=== PATIENT | male | born 1950 | race Caucasian/White ===

== ENCOUNTER 2018-02-14 19:00 | Inpatient (IN) | payer OTHER ==
[~2018-02-14] VITALS: Ht 185.4 cm; Wt 93.5 kg
[2018-02-14 19:28] VITALS: Ht 185.4 cm; Wt 93.5 kg
[2018-02-14 20:45] LABS: BASOPHIL % 0.5 % (0-2); PLATELET COUNT 175 x10^3mcL (130-400); RED CELL DISTRIBUTION WIDTH 13.5 % (11.5-14.5)
[2018-02-14 21:03] LABS: CALCIUM 9.1 mg/dL (8.5-10.1); CARBON DIOXIDE 28.3 mmol/L (21-32); CHLORIDE SERUM 101 mmol/L (98-107); CREATININE SERUM 0.8 mg/dL (0.7-1.3); GFR1 > 60 mL/min; GLUCOSE SERUM 144 mg/dL (74-106); POTASSIUM SERUM 3.7 mmol/L (3.5-5.1); SODIUM SERUM 132 mmol/L (136-145)
[2018-02-14 21:07] LABS: ALBUMIN 3.4 g/dL (3.4-5.0); ALKALINE PHOSPHATASE 167 U/L (46-116); ALT/SGPT 39 U/L (16-63); AST/SGOT 28 U/L (15-37); BILIRUBIN TOTAL 0.85 mg/dL (0.20-1.00); LIPASE 204 IU/L (73-393); TOTAL PROTEIN, SERUM 7.2 g/dL (6.4-8.2)
[2018-02-14 22:13] LABS: AMYLASE 57 U/L (25-115)
[2018-02-14] MEDS ORDERED: CALCIUM500 M1 PO (22:56)
[2018-02-14] MEDS ORDERED: GLUCOSAMINE1000 MG PO (22:57)
[2018-02-14] MEDS ORDERED: ZYTIGA250 MG (22:58)
[2018-02-15 00:08] VITALS: BP 145/75
[2018-02-15 05:28] VITALS: BP 145/80
[2018-02-15 06:40] LABS: BASOPHIL % 0.3 % (0-2); PLATELET COUNT 157 x10^3mcL (130-400); RED CELL DISTRIBUTION WIDTH 12.2 % (11.5-14.5)
[2018-02-15 07:22] LABS: ALBUMIN 3.1 g/dL (3.4-5.0); ALKALINE PHOSPHATASE 151 U/L (46-116); ALT/SGPT 36 U/L (16-63); AST/SGOT 28 U/L (15-37); BILIRUBIN TOTAL 0.9 mg/dL (0.20-1.00); CALCIUM 8.9 mg/dL (8.5-10.1); CARBON DIOXIDE 28.3 mmol/L (21-32); CHLORIDE SERUM 107 mmol/L (98-107); CREATININE SERUM 0.5 mg/dL (0.7-1.3); GFR1 > 60 mL/min; GLUCOSE SERUM 113 mg/dL (74-106); MAGNESIUM 2.1 mg/dL (1.8-2.4); PHOSPHOROUS 3.4 mg/dL (2.5-4.9); POTASSIUM SERUM 3.3 mmol/L (3.5-5.1); SODIUM SERUM 143 mmol/L (136-145); TOTAL PROTEIN, SERUM 6.6 g/dL (6.4-8.2)
[2018-02-15 09:57] VITALS: BP 147/74
[2018-02-15] MEDS ORDERED: CLOPIDOGREL300 M1 PO (10:16)
[2018-02-15] MEDS ORDERED: ATORVASTATIN CA40 M1 PO (10:17)
[2018-02-15] MEDS ORDERED: METOPROLOL SUCC25 M2 PO (10:17)
[2018-02-15] MEDS ORDERED: ECO81 PO (10:17)
[2018-02-15 12:44] VITALS: BP 133/67
[2018-02-15 16:49] VITALS: BP 141/78
[2018-02-16 05:52] VITALS: BP 134/70
[2018-02-16 08:32] VITALS: BP 125/66
[2018-02-16 12:16] VITALS: BP 126/71
[2018-02-16 16:29] VITALS: BP 142/76
[2018-02-16 16:56] VITALS: BP 126/71
== END 2018-02-16 18:05 | disposition short-term general hospital (02) | DRG 282 ==
LOC: ED 19:00 → DU 22:34
PROVIDERS: Emergency Medicine; Internal Medicine Pulmonary Disease
DX: I21.4 Non-ST elevation (NSTEMI) myocardial infarction (principal); E87.6 Hypokalemia; Z85.46 Personal history of malignant neoplasm of prostate; Z68.27 Body mass index [BMI] 27.0-27.9, adult
CPT/HCPCS: 84153; J1644; J1650; J2270; J7030